=== PATIENT | male | born 1975 ===

== ENCOUNTER 2018-08-17 08:09 | Day surgery (SDC) | payer MEDICAID ==
[2018-08-17] MEDS ORDERED: Lactated Ringer's 500 ML IV ONE (08:24)
[2018-08-17 08:30] VITALS: BMI 23.1
[2018-08-17] MEDS ORDERED: Propofol 10 mg/ml Inj (20 ML) ONE (09:58)
[2018-08-17 10:38] VITALS: O2SAT 100
[2018-08-17 10:51] VITALS: PULSE 50; RESP 12; TEMP 97.3
[2018-08-17 10:52] VITALS: BP 104/59
== END 2018-08-17 12:30 | disposition home or self-care (01) ==
LOC: H.ENDO 08:09 → EDBD 08:09 → H.ENDO 12:30
PROVIDERS: ATTEND Internal Medicine Gastroenterology
DX: K31.89 Other diseases of stomach and duodenum (principal); R12 Heartburn; K21.9 Gastro-esophageal reflux disease without esophagitis; K29.50 Unspecified chronic gastritis without bleeding
CPT/HCPCS: 43239; 88305; J2001; J2704; J7120